=== PATIENT | male | born 1955 | race Caucasian/White ===

== ENCOUNTER 2017-06-04 07:08 | Day surgery (SDC) | payer BC ==
[2017-06-04] MEDS ORDERED: fentaNYL 100 MCG/2 ML SDV ONE (07:44)
[2017-06-04] MEDS ORDERED: Propofol 200 MG/20 ML SDV ONE ×2 (07:44→08:41)
[2017-06-04] MEDS ORDERED: Lactated Ringers 1,000 ML IV SCH (08:00)
[2017-06-04 09:28] VITALS: BP 124/73
--- NOTE | 2017-06-04 10:47 | OR ---
PREOPERATIVE DIAGNOSIS: Screening colonoscopy. POSTOPERATIVE DIAGNOSIS: Normal colonoscopic exam. PROCEDURE PROPOSED/PROCEDURE DONE: Total flexible colonoscopy. INDICATION: This is a 61-year-old gentleman who comes in for his 1st screening colonoscopic exam. He denies any symptomatology and he has a negative family history of any close family colon cancer. TECHNIQUE: He was brought to the endoscopy suite, placed in the left lateral decubitus position. He was sedated per [employer] ASSIST[employer]NAGER with propofol. The flexible video colonoscope was then passed transanally and under visualization advanced to the cecum, confirmed with appendiceal and ileocecal valve. Visualization of the ascending, transverse, descending, sigmoid, and rectal colon was essentially normal. Upon withdrawal of the scope, there were no signs of any polyps, colitis, or other abnormalities and the scope was then withdrawn. The patient tolerated the procedure well. IMPRESSION: Essentially normal colonoscopic exam. PLAN: The patient is reassured. I feel that he could wait 10 years before he needs a repeat colonoscopy. SCM: 06/04/2017 08:54:20 MODL: 06/04/2017 10:17:42 /[id number]
== END 2017-06-04 10:17 | disposition home or self-care (01) ==
LOC: VM.SDS 07:08
PROVIDERS: ATTEND Surgery
DX: Z12.11 Encounter for screening for malignant neoplasm of colon (principal); I25.10 Atherosclerotic heart disease of native coronary artery without angina pectoris; I10 Essential (primary) hypertension; E78.00 Pure hypercholesterolemia, unspecified; G47.33 Obstructive sleep apnea (adult) (pediatric); E66.9 Obesity, unspecified; Z68.30 Body mass index [BMI] 30.0-30.9, adult; R73.9 Hyperglycemia, unspecified; Z79.899 Other long term (current) drug therapy; Z88.0 Allergy status to penicillin; Z88.1 Allergy status to other antibiotic agents; Z88.8 Allergy status to other drugs, medicaments and biological substances
CPT/HCPCS: 45378; J2704; J3010; J7120